=== PATIENT | male | born 1965 | race African-American/Black ===

== ENCOUNTER 2021-04-14 15:52 | Observation (INO) ==
[2021-04-14 23:42] LABS: Basophils # 0.1 10*3/uL (0.0-0.2); Basophils % 1.2 % (0.0-0.8); Eosinophils # 0.1 10*3/uL (0.0-0.87); Eosinophils % 1.4 % (0.00-10.9); Hematocrit 40.6 VOL% (42.0-52.0); Immature Granulocytes % 0.3 %; Immature Granulocytes Absolute 0.02 #; Lymphocytes # 1.8 10*3/uL (1.4-4.0); Lymphocytes % 28.1 % (21.2-54.2); Mean Corpuscular HGB Conc 34.5 GM/DL (32-36); Mean Corpuscular Volume 91.6 FL (87-102); Mean Platelet Volume 10.5 FL (9.6-12.0); Monocytes % 5.6 % (1.7-12.7); Neutrophils % 63.4 % (38.7-73.9); Platelet Count 162 T/CUMM (130-400); Red Blood Count 4.43 MC/CUMM (3.8-5.5); Red Cell Distribution Width 13.7 % (9.3-17.3); White Blood Count 6.6 T/CUMM (4-12)
[2021-04-15] MEDS ORDERED: ASPIRIN EC 325 MG TABLET PO STA (00:02)
[2021-04-15 00:12] LABS: Albumin 4.1 G/DL (3.4-5.0); Bilirubin,Total 0.6 MG/DL (0.20-1.00); Calcium 9.5 MG/DL (8.5-10.1); Osmolality,Calculated 274.7 MOS/KG (273-304); Potassium 3.8 MMOL/L (3.5-5.1); Total Protein 8.3 G/DL (6.4-8.2)
[2021-04-15] MEDS ORDERED: ENOXAPARIN 100 MG/ML SYRINGE SUBCUT STA (00:57)
[2021-04-15] MEDS ORDERED: ENOXAPARIN 30 MG/0.3 ML SYRINGE SUBCUT STA (00:57)
[2021-04-15] MEDS ORDERED: ONDANSETRON 4 MG/2 ML VIAL IV PRN (02:04)
[2021-04-15] MEDS ORDERED: MORPHINE 2 MG/1 ML SYRINGE IV PRN (02:04)
[2021-04-15] MEDS ORDERED: hydrALAZINE 20 MG/1 ML VIAL IV PRN (02:04)
[2021-04-15] MEDS ORDERED: DEXTROSE 10% 250 ML BAG IV PRN (02:04)
[2021-04-15] MEDS ORDERED: ACETAMINOPHEN 325 MG TABLET PO PRN (02:04)
[2021-04-15] MEDS ORDERED: GLUCAGON 1 MG VIAL IM PRN (02:04)
[2021-04-15 02:15] LABS: Bilirubin,Urine Negative (Negative); Blood, Urine Negative (Negative); Glucose,Urine (UA) Negative (Negative); Ketones,Urine Negative (Negative); Nitrite,Urine Negative (Negative); Protein,Urine Negative; RBC,Urine 1 /HPF (0-4); Urine Appearance CLEAR (Clear); Urine Color Colorless (Yellow); Urine Specific Gravity 1.004 (1.001-1.035); Urine Urobilinogen < 2.0 EU/DL (<2.0)
[2021-04-15] MEDS: SODIUM CHLORIDE 0.9% 1,000 ML IV SCH ×3 (02:30→19:59)
[2021-04-15 03:42] LABS: Osmolality,Calculated 276.5 MOS/KG (273-304); Potassium 3.6 MMOL/L (3.5-5.1); Risk Ratio 2.63; Thyroid Stimulating Hormone 2.32 uIU/ml (0.358-3.74); VLDL Cholesterol 18.4 MG/DL
[2021-04-15] MEDS ORDERED: PANTOPRAZOLE 40 MG VIAL IV STA (09:34)
[2021-04-15] MEDS: PANTOPRAZOLE 40 MG TABLET PO SCH (10:02)
[2021-04-15] MEDS ORDERED: MAGNESIUM SULF RIDER 2 GM/50 ML PREMIX IV PRN (11:28)
[2021-04-15] MEDS ORDERED: MAGNESIUM SULF RIDER 4 GM/100 ML PREMIX IV PRN (11:28)
[2021-04-16] MEDS: SODIUM CHLORIDE 0.9% 1,000 ML IV SCH ×2 (02:44→08:50)
[2021-04-16] MEDS ORDERED: TADALAFIL 10 MG PO PRN (07:55)
[2021-04-16 08:29] LABS: Basophils # 0.1 10*3/uL (0.0-0.2); Basophils % 2.2 % (0.0-0.8); Eosinophils # 0.2 10*3/uL (0.0-0.87); Eosinophils % 5.8 % (0.00-10.9); Hemoglobin 12.9 GM/DL (14.0-18.0); Immature Granulocytes % 0.3 %; Immature Granulocytes Absolute 0.01 #; Lymphocytes # 1.4 10*3/uL (1.4-4.0); Lymphocytes % 38.3 % (21.2-54.2); Mean Corpuscular HGB Conc 33.9 GM/DL (32-36); Mean Corpuscular Volume 92.7 FL (87-102); Mean Platelet Volume 10.3 FL (9.6-12.0); Monocytes % 6.1 % (1.7-12.7); Neutrophils % 47.3 % (38.7-73.9); Platelet Count 149 T/CUMM (130-400); White Blood Count 3.6 T/CUMM (4-12)
[2021-04-16 08:56] VITALS: BP 137/87
[2021-04-16 08:59] LABS: Calcium 8.8 MG/DL (8.5-10.1); Osmolality,Calculated 277.5 MOS/KG (273-304); Potassium 4.1 MMOL/L (3.5-5.1)
[2021-04-16] MEDS ORDERED: PANTOPRAZOLE 40 MG TABLET PO SCH (09:00)
[2021-04-16] MEDS ORDERED: NEBIVOLOL 10 MG TABLET PO SCH (09:00)
[2021-04-16] MEDS ORDERED: LOSARTAN 50 MG TABLET PO SCH (09:00)
[2021-04-16] MEDS ORDERED: TAMSULOSIN 0.4 MG CAPSULE PO SCH (09:00)
[2021-04-16] MEDS ORDERED: ASPIRIN EC 325 MG TABLET PO SCH (09:00)
[2021-04-16] MEDS ORDERED: amLODIPine 10 MG TABLET PO SCH (09:00)
[2021-04-16] MEDS ORDERED: allopurinoL 300 MG TABLET PO SCH (09:00)
[2021-04-16] MEDS: PANTOPRAZOLE 40 MG TABLET PO SCH (09:25)
== END 2021-04-16 11:48 | disposition home or self-care (01) ==
LOC: N.EDINP 15:52 → N.ED 15:52 → N.EDINP 04-15 13:45 → N.TELEN 04-15 14:25
PROVIDERS: ADMIT Phlebology; ATTEND Phlebology

== ENCOUNTER 2022-02-28 12:26 | Observation (INO) ==
[2022-02-28 13:36] LABS: Basophils # 0.1 10*3/uL (0.0-0.2); Basophils % 1.3 % (0.0-0.8); Eosinophils # 0.1 10*3/uL (0.0-0.87); Eosinophils % 1.1 % (0.00-10.9); Hematocrit 40.2 VOL% (42.0-52.0); Hemoglobin 13.7 GM/DL (14.0-18.0); Immature Granulocytes % 0.2 %; Immature Granulocytes Absolute 0.01 #; Lymphocytes % 14.9 % (21.2-54.2); Mean Corpuscular HGB Conc 34.1 GM/DL (32-36); Mean Corpuscular Volume 92.6 FL (87-102); Mean Platelet Volume 9.9 FL (9.6-12.0); Monocytes # 0.3 10*3/uL (0.11-0.8); Monocytes % 4.7 % (1.7-12.7); Neutrophils % 77.8 % (38.7-73.9); Platelet Count 160 T/CUMM (130-400); Red Blood Count 4.34 MC/CUMM (3.8-5.5); Red Cell Distribution Width 13.5 % (9.3-17.3); White Blood Count 6.4 T/CUMM (4-12)
[2022-02-28 14:02] LABS: Alanine Aminotransferase 15 U/L (16-61); Albumin 3.7 G/DL (3.4-5.0); Alkaline Phosphatase 59 U/L (45-117); Aspartate Amino Transferase 5 U/L (0-37); Bilirubin,Total < 0.39 MG/DL (0.20-1.00); Blood Urea Nitrogen 15 MG/DL (7-18); Calcium 9.1 MG/DL (8.5-10.1); Carbon Dioxide 29 MMOL/L (21-32); Chloride 106 MMOL/L (98-107); Glucose 132 MG/DL (74-106); Osmolality,Calculated 281.4 MOS/KG (273-304); Potassium 3.7 MMOL/L (3.5-5.1); Sodium 140 MMOL/L (136-145); Total Protein 7.4 G/DL (6.4-8.2)
[2022-02-28 14:48] LABS: Bilirubin,Urine Negative (Negative); Blood, Urine Negative (Negative); Glucose,Urine (UA) Negative (Negative); Ketones,Urine Negative (Negative); Nitrite,Urine Negative (Negative); Protein,Urine Negative (Negative); Urine Appearance Clear (Clear); Urine Color Yellow (Yellow); Urine Specific Gravity 1.015 (1.001-1.035); Urine Urobilinogen 0.2 eU/dL (<2.0)
[2022-02-28 14:51] LABS: Hyaline Casts,Urine 1 /LPF (0-3); Mucus,Urine Occasional /LPF (Occasional); RBC,Urine <1 /HPF (0-4)
[2022-02-28] MEDS ORDERED: hydrALAZINE 20 MG/1 ML VIAL IV PRN (16:16)
[2022-02-28] MEDS ORDERED: ACETAMINOPHEN 325 MG TABLET PO PRN (16:16)
[2022-02-28] MEDS ORDERED: ONDANSETRON 4 MG/2 ML VIAL IV PRN (16:16)
[2022-02-28] MEDS: ENOXAPARIN 40 MG/0.4 ML SYRINGE SUBCUT SCH (21:28)
[2022-03-01 05:48] LABS: Basophils # 0.1 10*3/uL (0.0-0.2); Basophils % 1.9 % (0.0-0.8); Eosinophils # 0.1 10*3/uL (0.0-0.87); Eosinophils % 2.3 % (0.00-10.9); Hematocrit 37.1 VOL% (42.0-52.0); Hemoglobin 12.7 GM/DL (14.0-18.0); Immature Granulocytes % 0.2 %; Immature Granulocytes Absolute 0.01 #; Lymphocytes # 1.8 10*3/uL (1.4-4.0); Lymphocytes % 36.6 % (21.2-54.2); Mean Corpuscular HGB Conc 34.2 GM/DL (32-36); Mean Corpuscular Volume 91.8 FL (87-102); Mean Platelet Volume 10.6 FL (9.6-12.0); Monocytes # 0.3 10*3/uL (0.11-0.8); Monocytes % 6.3 % (1.7-12.7); Neutrophils % 52.7 % (38.7-73.9); Platelet Count 163 T/CUMM (130-400); Red Blood Count 4.04 MC/CUMM (3.8-5.5); Red Cell Distribution Width 13.6 % (9.3-17.3); White Blood Count 4.8 T/CUMM (4-12)
[2022-03-01 06:16] LABS: Osmolality,Calculated 279.4 MOS/KG (273-304); Potassium 3.6 MMOL/L (3.5-5.1); Risk Ratio 3.39; VLDL Cholesterol 15.2 MG/DL
[2022-03-01] MEDS: ASPIRIN EC 81 MG TABLET PO SCH (11:15)
[2022-03-01] MEDS: FLUoxetine 10 MG CAPSULE PO SCH (11:16)
[2022-03-01] MEDS: PANTOPRAZOLE 40 MG TABLET PO SCH (11:16)
[2022-03-01 18:46] LABS: Barbiturates Screen,Urine Negative (Negative); Benzodiazepines Screen,Urine Negative (Negative); Cannabinoid Screen,Urine Negative (Negative); Opiate Screen,Urine Negative (Negative); Phencyclidine Screen,Urine Negative (Negative)
[2022-03-01] MEDS: ENOXAPARIN 40 MG/0.4 ML SYRINGE SUBCUT SCH (22:04)
[2022-03-02 05:05] LABS: Basophils # 0.1 10*3/uL (0.0-0.2); Basophils % 1.5 % (0.0-0.8); Eosinophils # 0.2 10*3/uL (0.0-0.87); Eosinophils % 3.4 % (0.00-10.9); Hematocrit 37.1 VOL% (42.0-52.0); Hemoglobin 12.6 GM/DL (14.0-18.0); Immature Granulocytes % 0.4 %; Immature Granulocytes Absolute 0.02 #; Lymphocytes % 41.6 % (21.2-54.2); Mean Corpuscular Volume 93.7 FL (87-102); Mean Platelet Volume 10.5 FL (9.6-12.0); Monocytes # 0.3 10*3/uL (0.11-0.8); Monocytes % 6.8 % (1.7-12.7); Neutrophils % 46.3 % (38.7-73.9); Platelet Count 150 T/CUMM (130-400); Red Blood Count 3.96 MC/CUMM (3.8-5.5); Red Cell Distribution Width 13.1 % (9.3-17.3); White Blood Count 4.7 T/CUMM (4-12)
[2022-03-02 05:18] LABS: Calcium 8.8 MG/DL (8.5-10.1); Osmolality,Calculated 281.3 MOS/KG (273-304); Potassium 3.7 MMOL/L (3.5-5.1)
[2022-03-02] MEDS ORDERED: LIDOCAINE 1%/EPI INJ 20 ML VIAL ONE (08:35)
[2022-03-02] MEDS ORDERED: TISSUE ADHESIVE 1 EACH APPLICATOR TOP ONE (08:35)
[2022-03-02] MEDS: ASPIRIN EC 81 MG TABLET PO SCH (08:51)
[2022-03-02] MEDS: FLUoxetine 10 MG CAPSULE PO SCH (08:51)
[2022-03-02] MEDS: PANTOPRAZOLE 40 MG TABLET PO SCH (08:51)
[2022-03-02] MEDS ORDERED: amLODIPine 5 MG TABLET PO SCH (09:00)
[2022-03-02] MEDS ORDERED: NEBIVOLOL 10 MG TABLET PO SCH (09:00)
[2022-03-02 12:16] VITALS: BP 144/88
== END 2022-03-02 14:04 | disposition home or self-care (01) ==
LOC: N.EDINP 12:26 → N.ED 12:26 → SUATTDRO 16:16 → N.2W 17:03 → N.TELES 03-01 18:33
PROVIDERS: ADMIT Internal Medicine; ATTEND Hospitalist